=== PATIENT | male | born 1985 | race African-American/Black ===

== ENCOUNTER 2018-05-07 19:44 | Emergency (ER) | payer MEDICAID, MEDICARE ==
[~2018-05-07] VITALS: Ht 180.3 cm; Wt 85.0 kg
[2018-05-07] MEDS ORDERED: KETOROLAC 60MG/2ML VIAL IM STA (22:43)
[2018-05-07 23:22] VITALS: BP 129/86
== END 2018-05-07 23:25 | disposition home or self-care (01) ==
LOC: ER 21:11
DX: K05.10 Chronic gingivitis, plaque induced (principal)
CPT/HCPCS: 96372; 99283; J1885

== ENCOUNTER 2025-05-20 16:43 | Emergency (ER) | payer MEDICAID, OTHER ==
[~2025-05-20] VITALS: Ht 182.9 cm; Wt 77.0 kg
[2025-05-20] MEDS: HALOPERIDOL LACTATE 5MG/ML VIAL IM ONE (17:46)
[2025-05-20] MEDS: DIPHENHYDRAMINE 50MG/ML VIAL IM ONE (17:46)
[2025-05-20] MEDS: LORAZEPAM 2MG/ML UD SYRINGE ONE (17:47)
[2025-05-20] MEDS: ZIPRASIDONE MESYLATE 20MG/VIAL IM ONE (19:00)
[2025-05-20 19:45] VITALS: O2SAT 99
[2025-05-20 19:47] LABS: CREATININE 0.8 mg/dL (0.6-1.3); UREA NITROGEN BLOOD 8 mg/dL (9-23)
[2025-05-20 19:48] LABS: ETHANOL BLOOD < 10 mg/dL (<10)
[2025-05-20 21:35] LABS: BASOPHILS % 0.5 % (0.0-2.0); EOSINOPHILS % 4.5 % (0.0-5.0); HEMATOCRIT. 40.2 % (42.0-52.0); HEMOGLOBIN. 13.0 g/dL (14.0-18.0); LYMPHOCYTES % 24.2 % (20.0-50.0); MEAN PLATELET VOLUME 8.6 fl (7.4-10.4); MONOCYTES % 14.0 % (2.0-8.0); NEUTROPHILS % 56.8 % (40.0-76.0); PLATELET 256 x1000/uL (130-400); RED BLOOD CELL COUNT 4.62 mill/uL (4.7-6.1); RED CELL DISTRIBUTION WIDTH 13.8 % (11.6-14.6)
[2025-05-20] MEDS ORDERED: POTASSIUM CHLORIDE 20MEQ TABLET SR PO ONE (22:15)
[2025-05-20] MEDS: POTASSIUM CHLORIDE 20MEQ TABLET SR PO NR (23:45)
[2025-05-21 01:07] LABS: *AMPHETAMINES SCREEN URINE NEGATIVE (NEGATIVE); *BARBITURATES SCREEN URINE NEGATIVE (NEGATIVE); *BENZODIAZEPINES SCREEN URINE NEGATIVE (NEGATIVE); *COCAINE SCREEN URINE NEGATIVE (NEGATIVE); CANNABINOID URINE SCREEN NEGATIVE (NEGATIVE); ECSTASY MDMA SCREEN URINE NEGATIVE (NEGATIVE); METHADONE URINE SCREEN NEGATIVE (NEGATIVE); OPIATES URINE SCREEN NEGATIVE (NEGATIVE); PHENCYCLIDINE URINE SCREEN NEGATIVE (NEGATIVE)
[2025-05-21] MEDS ORDERED: HYDROXYZINE 25MG TABLET PO PRN (12:00)
[2025-05-21] MEDS: POTASSIUM CHLORIDE 20MEQ/PACKET PO ONE (17:00)
[2025-05-21 18:11] VITALS: BP 140/80; PULSE 90; RESP 18; TEMP 36.9; O2SAT 100
[2025-05-21] MEDS ORDERED: OLANZAPINE 5MG TABLET ODT PO SCH (21:00)
== END 2025-05-21 18:15 ==
LOC: ER 16:43
DX: F84.0 Autistic disorder (principal); F20.9 Schizophrenia, unspecified; J45.909 Unspecified asthma, uncomplicated; Z20.822 Contact with and (suspected) exposure to COVID-19; Z98.890 Other specified postprocedural states; Z79.899 Other long term (current) drug therapy
CPT/HCPCS: 80048; 80307; 80329; 80320; 85025; 36415; 96372; 99291; 87426; 80305; J1200; J1630; J2060; J3486; G0480